=== PATIENT | male | born 2000 | race African-American/Black ===

== ENCOUNTER 2024-11-14 18:31 | Emergency (ER) | payer OTHER ==
[~2024-11-14] VITALS: Ht 188 cm; Wt 77.0 kg
[2024-11-14 18:42] VITALS: O2SAT 99
[2024-11-14 19:11] VITALS: BP 128/64; PULSE 79; RESP 18; TEMP 36.9; O2SAT 100
[2024-11-14 21:12] LABS: BASOPHILS % 0.7 % (0.0-2.0); DIFFERENTIAL COMMENT 0; EOSINOPHILS % 2.6 % (0.0-5.0); HEMATOCRIT. 43.5 % (42.0-52.0); HEMOGLOBIN. 14.1 g/dL (14.0-18.0); LYMPHOCYTES % 34.1 % (20.0-50.0); MEAN CORPUSCULAR HEMOGLOBIN 23.1 pg (28.0-32.0); MEAN CORPUSCULAR HGB CONC 32.5 g/dL (31.0-37.0); MEAN CORPUSCULAR VOLUME 71.1 fL (80.0-94.0); MEAN PLATELET VOLUME 7.9 fl (7.4-10.4); MONOCYTES % 6.4 % (2.0-8.0); NEUTROPHILS % 56.2 % (40.0-76.0); PLATELET 221 x1000/uL (130-400); RED BLOOD CELL COUNT 6.11 mill/uL (4.7-6.1); RED CELL DISTRIBUTION WIDTH 15.7 % (11.6-14.6); WHITE BLOOD COUNT 7.6 x1000/uL (4.5-11.0)
[2024-11-14 21:20] LABS: CHLORIDE 108 mEq/L (98-107); SODIUM 141 mEq/L (136-145)
[2024-11-14 21:21] LABS: CARBON DIOXIDE 28 mEq/L (21-32)
[2024-11-14 21:22] LABS: CALCIUM 9.2 mg/dL (8.7-10.4)
[2024-11-14 21:26] LABS: CREATININE 0.8 mg/dL (0.6-1.3); GLUCOSE 84 mg/dL (70-105)
[2024-11-14 21:27] LABS: UREA NITROGEN BLOOD 6 mg/dL (9-23)
== END 2024-11-14 21:33 | disposition left against medical advice (07) ==
LOC: ER 18:31
DX: R20.0 Anesthesia of skin (principal); Z53.21 Procedure and treatment not carried out due to patient leaving prior to being seen by health care provider
CPT/HCPCS: 36415; 80048; 85025